=== PATIENT | male | born 2000 | race African-American/Black ===

== ENCOUNTER 2025-03-14 09:51 | Emergency (ER) | payer OTHER, SELFPAY ==
[2025-03-14 10:08] VITALS: BP 118/77; PULSE 85; RESP 16; TEMP 36.6; O2SAT 94; BMI 20.4
--- NOTE | 2025-03-14 10:35 | CRLHL7_ITS ---
For Patients: As a result of the Century Cures Act, medical imaging exams and procedure reports are released immediately into your electronic medical record. You may view this report before your referring provider. If you have questions, please contact your health care provider. Indication: Left ankle pain Technique: Three views left ankle Comparison: None Findings/Impression: Bones: Alignment is normal. No fractures or bone lesions. Joint spaces: Unremarkable. Soft tissues: Unremarkable. Dictated by Myles Patel MD @ 03/14/2025 11:41:31 AM (Electronically Signed)
--- NOTE | 2025-03-14 10:57 | ED_ITS ---
HPI - Extremity Injury (Lower) General Time Seen by Provider: 10:57 Date Seen: 03/14/25 Chief Complaint: Extremity Pain/Injury, Lower Stated Complaint: L foot injury Time Seen by Provider: 03/14/25 10:57 Source: patient and RN notes reviewed Mode of arrival: ambulatory Limitations: no limitations History of Present Illness HPI Narrative: Patient is a very pleasant 24-year-old gentleman with history of ankle sprains in the past but no fractures who comes to the emergency room for evaluation regarding pain on the inner aspect of his left foot. Patient notes that last evening his son who is 30 lb fell asleep on him. He himself was sleeping did not have any pain until he was at work and notice that with extensive walking or picking up heavy items that he would have pain. He is showing this to be the area just inferior to the medial malleolus and on to the instep. No fevers chills. He has not taken anything for pain at this time. At rest pain is improved. Related Data Home Medications ?Medication ?Instructions ?Recorded ?Confirmed No Known Home Medications 03/14/2503/05 Allergies Allergy/AdvReac Type Severity Reaction Status Date / Time No Known Drug Allergies Allergy Verified 03/14/25 10:07 Review of Systems Status of ROS: Reports: 6 or more systems reviewed and unremarkable except as noted in History and below [facility] Social History Smoking Status: Current every day smoker What tobacco products do you use: cigarettes Smoking packs per day: 0.25 Smoking cigarettes per day: 5.0 Do you use any of these nicotine containing products: None Second hand tobacco smoke exposure: No How often do you have a drink containing alcohol: never AUDIT-C Alcohol total score: 0 Non-prescribed substance use: denies use service: No Exam Narrative: Exam Narrative: Alert and oriented. No acute distress. Examination of the foot shows normal anatomy without any edema erythema. There is no area that is warm to the touch. He has no pain with palpation the malleoli bilaterally. He does have discomfort on the soft tissue inferior to the medial malleolus extending in to the instep. Const: Vital Signs, click to edit/add: Vital Signs - 24 hr 03/14/25 10:08 Temperature 97.9 F Pulse Rate [Pulse Oximeter] 85 Respiratory Rate 16 Blood Pressure [Ri ght Upper Arm] 118/77 Pulse Oximetry 94 Oxygen Delivery Me thod Room Air Documenting provider has reviewed patient's vital signs: yes Course Course ED Course: At this time differential diagnosis does include occult fracture, plantar fasciitis, soft tissue injury. X-rays have been done by the time I see this gentleman and we are currently awaiting on radiological read. I do not note any fractures at this time. Have offered patient 600 mg of ibuprofen. Reevaluation(s) Reevaluation #1: Patient notes that his foot seems to be somewhat improved after ibuprofen. Vital Signs Vital signs: Initial Vital Signs Temperature 97.9 F 03/14/25 10:08 Temperature Source Temporal Artery Scan 03/14/25 10:08 Pulse Rate 85 03/14/25 10:08 Pulse Rhythm Regular 03/14/25 10:08 Pulse Strength 3+ Normal 03/14/25 10:08 Respiratory Rate 16 03/14/25 10:08 Blood Pressure 118/77 03/14/25 10:08 Blood Pressure Mean 90 03/14/25 10:08 Blood Pressure Position Sitting 03/14/25 10:08 Pulse Oximetry 94 03/14/25 10:08 Oxygen Delivery Method Room Air 03/14/25 10:08 Vital Signs Temperature 97.9 F 03/14/25 10:08 Pulse Rate 85 03/14/25 10:08 Respiratory Rate 16 03/14/25 10:08 Blood Pressure 118/77 03/14/25 10:08 Pulse Oximetry 94 03/14/25 10:08 Oxygen Delivery Method Room Air 03/14/25 10:08 Temperature 97.9 F 03/14/25 10:08 Pulse Rate 85 03/14/25 10:08 Respiratory Rate 16 03/14/25 10:08 Blood Pressure 118/77 03/14/25 10:08 Pulse Oximetry 94 03/14/25 10:08 Oxygen Delivery Method Room Air 03/14/25 10:08 Medications Administered Medications: Discontinued Medications Generic Name Dose Route Start Last Admin Trade Name Freq PRN Reason Stop Dose Admin Ibuprofen 600 mg 03/14/25 11:04 03/14/25 11:09 Ibuprofen 200 Mg Tablet PO 03/14/25 11:05 600 mg ONCE ONE Administration MDM - Extremity Injury (Lower) MDM Narrative Medical decision making narrative: 1. Soft tissue injury foot-recommend ibuprofen 600 mg every 8 hours as needed for discomfort. Recommend icing of this area few times daily. Discussed importance of stretching of the plantar fascia. Note for no work today. Recommend follow-up with orthopedics if not improving. 2. Disposition-home at this time. Note for work. Imaging Data Ankle x-ray: Attestation: I have reviewed the pertinent imaging results. My impression: I do not note any fractures Radiologist's impression: Findings/Impression: Bones: Alignment is normal. No fractures or bone lesions. Joint spaces: Unremarkable. Soft tissues: Unremarkable. Discharge Plan Discharge Clinical Impression: Soft tissue injury of left foot Qualifiers: Encounter type: initial encounter Qualified Code(s): S99.922A - Unspecified injury of left foot, initial encounter Patient Disposition: Home, Self-Care Condition: Improved Additional Instructions: Recommend ibuprofen 600 mg 8 hours as needed for discomfort. Make sure you have good arch support in your boots. Recommend icing of the area that is sore-not on bare skin a few times daily. If you are not improving recommend follow-up at the orthopedic clinic, the phone number is [phone]. Prescriptions: No Action No Known Home Medications Stand Alone Forms: [employer] Info Instructions
[2025-03-14] MEDS: IBUPROFEN 200 MG TABLET 600 MG PO (11:09)
== END 2025-03-14 12:00 | disposition home or self-care (01) ==
PROVIDERS: Emergency Provider Family Medicine
DX: S99.822A Other specified injuries of left foot, initial encounter (principal); X58.XXXA Exposure to other specified factors, initial encounter
CPT/HCPCS: 73610; 99283; A9270